=== PATIENT | female | born 1955 | race Hispanic/Latino ===

== ENCOUNTER 2019-09-15 05:54 | Emergency (ER) | payer SELFPAY ==
[2019-09-15] MEDS ORDERED: NA CHLORIDE 0.9% 1,000 ML ONE (06:22)
[2019-09-15 06:46] LABS: Absolute Lymphocytes (CBC) 3.1 K/uL (0.7-4.9); Basophils % 0.6 % (0-1.3); MPV 9.6 fL (7.6-11.3); RBC Red Blood Cell Count 4.17 M/uL (3.86-4.86)
[2019-09-15] MEDS ORDERED: FENTANYL CITR 100 MCG/2 ML ONE (06:47)
[2019-09-15 06:56] LABS: Urine Blood TRACE (NEG); Urine Glucose NEGATIVE (NEG); Urine Protein NEGATIVE (NEG); Urine Specific Gravity 1.025 (1.005-1.030); Urine pH 5.5 (5.0-7.0)
[2019-09-15 07:08] LABS: Urine Bacteria 20-50 /HPF (<20); Urine Culture Reflex Order NOT NEEDED; Urine RBC <5 /HPF (NONE SEEN)
[2019-09-15 07:42] LABS: ALT/SGPT 36 U/L (12-78); AST/SGOT 34 U/L (15-37); Albumin 3.6 g/dL (3.4-5.0); Alkaline Phosphatase 164 U/L (45-117); BUN Blood Urea Nitrogen 13 mg/dL (7-18); Bicarbonate 26 mmol/L (21-32); Bilirubin Direct 0.2 mg/dL (0-0.2); Bilirubin Total 0.8 mg/dL (0.2-1.0); Creatine Phosphokinase 84 U/L (26-192); Glucose Level 157 mg/dL (74-106); Lipase 143 U/L (73-393); Potassium 4.2 mmol/L (3.5-5.1); Protein, Total 7.7 g/dL (6.4-8.2); Sodium Level 139 mmol/L (136-145); Troponin I < 0.02 ng/mL (0.0-0.045)
--- NOTE | 2019-09-15 07:50 | RAD REPORT ---
EXAM DESCRIPTION: CT - Abdomen Pelvis W Contrast - 09/15/2019 7:39 am CLINICAL HISTORY: ABD PAIN COMPARISON: No comparisons TECHNIQUE: Biphasic, helical CT imaging of the abdomen and pelvis was performed following 100 ml non -ionic IV contrast. No oral contrast. All CT scans are performed using dose optimization technique as appropriate and may include automated exposure control or mA/KV adjustment according to patient size. FINDINGS: No suspicious findings in the lung bases. Liver shows a mild diffuse fatty infiltration pattern. No focal liver lesion identified. No splenomeg chuck or focal splenic finding. No pancreatic or peripancreatic abnormality identified. Numerous small layering gallstones are present within a normal-sized gallbladder. No active gallbladder process seen . No biliary tree dilatation. Symmetric renal function is seen with no hydronephrosis or suspicious renal mass. No pyelonephritis o r acute parenchymal process. No bladder abnormalities. No adrenal abnormalities. Uterus and ovaries s how no suspicious findings. Stomach, duodenum and proximal small bowel show no acute findings. Distended but nondilated mid and d istal small bowel loops are present. No obstructive process suspected. Appendix is normal. Colon is m ostly decompressed. No acute colon finding. No free air, free fluid or inflammatory stranding. No hernia, mass or bulky lymphadenopathy. No suspicious bony findings. IMPRESSION: Prominent mid and distal small bowel loops most likely a nonspecific enteritis. No abrup t transition point, mass or other finding to suspect developing small bowel obstruction. No acute colon process seen. Multi stone cholelithiasis believed to be incidental to the current presentation. Mild fatty infiltration of the liver.
--- NOTE | 2019-09-15 07:59 | ER ---
Nurse's Notes [facility] Name: Yumiko Blackmon Age: 64 yrs Sex: Female : 1955 Arrival Date: 09/15/2019 Time: 05:57 Bed 6 Private MD: Diagnosis: Upper abdominal pain, unspecified;Cholelithiasis Presentation: 09/15 06:10 Presenting complaint: Patient states: Reports she started having epigastric pain last ea night and worsened at 2 AM 9// Pt denies it radiating, denies SOB. Reports she took omeprazole at 3 AM. Transition of care: patient was not received from another setting of care. Onset of symptoms was September 15, 2019. Risk Assessment: Do you want to hurt yourself or someone else? Patient reports no desire to harm self or others. Initial Sepsis Screen: Does the patient meet any 2 criteria? No. Patient's initial sepsis screen is negative. Does the patient have a suspected source of infection? No. Patient's initial sepsis screen is negative. Care prior to arrival: Medication(s) given: omeprazole at 3 AM. 06:10 Method Of Arrival: Ambulatory ea 06:10 Acuity: LEE 3 ea Triage Assessment: 06:16 General: Appears uncomfortable, Behavior is appropriate for age. Pain: Complains of ea pain in epigastric area. Neuro: Level of Consciousness is awake, alert, obeys commands, Oriented to person, place, time, situation. Cardiovascular: Patient's skin is warm and dry. Respiratory: Airway is patent Respiratory effort is even, unlabored, Respiratory pattern is regular, symmetrical. GI: Abdomen is non-distended. Derm: Skin is pink, warm \T\ dry. Historical: - Allergies: 06:13 No Known Allergies; ea - Home Meds: 06:13 omeprazole Oral [Active]; ea - PMHx: 06:13 None; ea - PSHx: 06:13 None; ea - Immunization history:: Adult Immunizations up to date. - Social history:: Smoking status: Patient/guardian denies using tobacco. - Ebola Screening: : No symptoms or risks identified at this time. Screenin:12 Abuse screen: Denies threats or abuse. Nutritional screening: No deficits noted. ea Tuberculosis screening: No symptoms or risk factors identified. Fall Risk IV access (20 points). Assessment: 06:16 Reassessment: see triage assessment. ea 07:10 Reassessment: Patient is alert, oriented x 3, equal unlabored respirations, skin aa5 warm/dry/pink. Patient states feeling better. Awaiting CT scan, pt notified of wait time. . Pain: Complains of pain in epigastric area Pain does not radiate. Pain currently is 5 out of 10 on a pain scale. Quality of pain is described as sharp. GI: Abdomen is round Bowel sounds present X 4 quads. Abd is soft X 4 quads Abdomen is tender to palpation in epigastric area Reports nausea, vomiting. 08:39 Reassessment: Patient is alert, oriented x 3, equal unlabored respirations, skin aa5 warm/dry/pink. Vital Signs: 06:14 BP 157 / 76; Pulse 87; Resp 18; Temp 98.2; Pulse Ox 97% ; Weight 108.86 kg; Height 5 ea ft. (152.40 cm); 07:10 BP 150 / 78; Pulse 88; Resp 16 S; Pulse Ox 96% on R/A; Pain 5/10; aa5 08:30 BP 148 / 70; Pulse 78; Resp 16 S; Temp 98.0(TE); Pulse Ox 98% on R/A; Pain 4/10; aa5 06:14 Body Mass Index 46.87 (108.86 kg, 152.40 cm) ea ED Course: 05:57 Patient arrived in ED. cl3 06:05 [facility] snw 06:05 Jeff Horvath MD is Attending Physician. snw 06:12 Triage completed. ea 06:14 Patient has correct armband on for positive identification. Placed in gown. Bed in low ea position. Call light in reach. Side rails up X 1. 06:16 Arm band placed on right wrist. Patient placed in an exam room, on a stretcher, on ea pulse oximetry. 06:35 Missed attempt(s): 20 gauge in right in left antecubital area. Bleeding controlled, ds4 band aid applied, catheter tip intact. 06:38 Radiology exam delayed due to lab results not completed at this time. (BUN/Creatinine). kw1 06:40 Inserted saline lock: 22 gauge in right forearm, using aseptic technique. Blood ea collected. 06:52 Radiology exam delayed due to lab results not completed at this time. (BUN/Creatinine). kw1 07:10 oJstin Marie, RN is Primary Nurse. jl7 07:39 CT Abd/Pelvis - IV Contrast Only In Process Unspecified. EDMS 07:57 Shiraz Chou MD is Referral Physician. snw 08:39 No provider procedures requiring assistance completed. IV discontinued, intact, aa5 bleeding controlled, No redness/swelling at site. Pressure dressing applied. Administered Medications: 06:50 Drug: fentaNYL (PF) 25 mcg Route: IVP; Site: right forearm; ea 07:10 Follow up: Response: No adverse reaction; Pain is decreased aa5 06:51 Drug: NS 0.9% 1000 ml Route: IV; Rate: 125 ml/hr; Site: right forearm; ea 07:10 Follow up: IV Status: Infusion continued aa5 08:13 Drug: UltRAM 50 mg Route: PO; jl7 08:13 Drug: Bentyl 20 mg Route: PO; jl7 Outcome: 07:58 Discharge ordered by MD. snw 08:39 Discharged to home ambulatory, with family. aa5 08:39 Condition: improved 08:39 Discharge instructions given to patient, Instructed on discharge instructions, follow up and referral plans. medication usage, Demonstrated understanding of instructions, follow-up care, medications, Prescriptions given X 2. 08:41 Patient left the ED. iw Signatures: Dispatcher [employer] EDDC Halina Daniels, COMMERCIAL CREDIT LEAD-C COMMERCIAL CREDIT LEAD-Csnw Karishma Quinones RN RN iw Kandice Cosby RN RN aa5 Zoran Scott ds4 Jostin Marie, RN RN jl7 Omaira Alvarado, RN Sera [place] ea kw1 Rafaela Abad cl3
--- NOTE | 2019-09-15 07:59 | EDPHYS ---
Physician Documentation [facility] Name: Yumiko Blackmon Age: 64 yrs Sex: Female : 1955 Arrival Date: 09/15/2019 Time: 05:57 Bed 6 Private MD: ED Physician eJff Horvath HPI: 09/15 06:59 This 64 yrs old Female presents to ER via Ambulatory with complaints of snw Abdominal Pain. 06:59 The patient presents with abdominal pain in the right upper quadrant. Onset: The snw symptoms/episode began/occurred suddenly, yesterday. The symptoms do not radiate. Associated signs and symptoms: Pertinent positives: nausea and vomiting. The symptoms are described as crampy. Severity of pain: At its worst the pain was moderate severe in the emergency department the pain has improved. It is unknown whether or not the patient has had similar symptoms in the past. The patient has not recently seen a physician. Historical: - Allergies: 06:13 No Known Allergies; ea - Home Meds: 06:13 omeprazole Oral [Active]; ea - PMHx: 06:13 None; ea - PSHx: 06:13 None; ea - Immunization history:: Adult Immunizations up to date. - Social history:: Smoking status: Patient/guardian denies using tobacco. - Ebola Screening: : No symptoms or risks identified at this time. ROS: 06:58 Constitutional: Negative for fever, chills, and weight loss, Eyes: Negative for injury, snw pain, redness, and discharge, ENT: Negative for injury, pain, and discharge, Neck: Negative for injury, pain, and swelling, Cardiovascular: Negative for chest pain, palpitations, and edema, Respiratory: Negative for shortness of breath, cough, wheezing, and pleuritic chest pain, Back: Negative for injury and pain, : Negative for injury, bleeding, discharge, and swelling, MS/Extremity: Negative for injury and deformity, Skin: Negative for injury, rash, and discoloration, Neuro: Negative for headache, weakness, numbness, tingling, and seizure. 06:58 Abdomen/GI: Positive for abdominal pain, nausea and vomiting, of the right upper quadrant. Exam: 06:57 Constitutional: This is a well developed, well nourished patient who is awake, alert, snw and in no acute distress. Head/Face: Normocephalic, atraumatic. Eyes: Pupils equal round and reactive to light, extra-ocular motions intact. Lids and lashes normal. Conjunctiva and sclera are non-icteric and not injected. Cornea within normal limits. Periorbital areas with no swelling, redness, or edema. ENT: Nares patent. No nasal discharge, no septal abnormalities noted. Tympanic membranes are normal and external auditory canals are clear. Oropharynx with no redness, swelling, or masses, exudates, or evidence of obstruction, uvula midline. Mucous membranes moist. Neck: Trachea midline, no thyromegaly or masses palpated, and no cervical lymphadenopathy. Supple, full range of motion without nuchal rigidity, or vertebral point tenderness. No Meningismus. Chest/axilla: Normal chest wall appearance and motion. Nontender with no deformity. No lesions are appreciated. Cardiovascular: Regular rate and rhythm with a normal S1 and S2. No gallops, murmurs, or rubs. Normal PMI, no JVD. No pulse deficits. Respiratory: Lungs have equal breath sounds bilaterally, clear to auscultation and percussion. No rales, rhonchi or wheezes noted. No increased work of breathing, no retractions or nasal flaring. Abdomen/GI: Soft, non-tender, with normal bowel sounds. No distension or tympany. No guarding or rebound. No evidence of tenderness throughout. Back: No spinal tenderness. No costovertebral tenderness. Full range of motion. Skin: Warm, dry with normal turgor. Normal color with no rashes, no lesions, and no evidence of cellulitis. MS/ Extremity: Pulses equal, no cyanosis. Neurovascular intact. Full, normal range of motion. Neuro: Awake and alert, GCS 15, oriented to person, place, time, and situation. Cranial nerves II-XII grossly intact. Motor strength 5/5 in all extremities. Sensory grossly intact. Cerebellar exam normal. Normal gait. Psych: Awake, alert, with orientation to person, place and time. Behavior, mood, and affect are within normal limits. 06:57 Abdomen/GI: Inspection: abdomen appears normal, Bowel sounds: normal, Palpation: mild abdominal tenderness, in the right upper quadrant and left upper quadrant. Vital Signs: 06:14 BP 157 / 76; Pulse 87; Resp 18; Temp 98.2; Pulse Ox 97% ; Weight 108.86 kg; Height 5 ea ft. (152.40 cm); 07:10 BP 150 / 78; Pulse 88; Resp 16 S; Pulse Ox 96% on R/A; Pain 5/10; aa5 08:30 BP 148 / 70; Pulse 78; Resp 16 S; Temp 98.0(TE); Pulse Ox 98% on R/A; Pain 4/10; aa5 06:14 Body Mass Index 46.87 (108.86 kg, 152.40 cm) ea MDM: 06:07 Patient medically screened. snw 07:59 Data reviewed: vital signs, nurses notes. Data interpreted: Pulse oximetry: on room air snw is 96 %. Interpretation: acceptable. Counseling: I had a detailed discussion with the patient and/or guardian regarding: the historical points, exam findings, and any diagnostic results supporting the discharge/admit diagnosis, the presence of at least one elevated blood pressure reading (>120/80) during this emergency department visit, lab results, radiology results, the need for outpatient follow up, to return to the emergency department if symptoms worsen or persist or if there are any questions or concerns that arise at home. Response to treatment: the patient's symptoms have markedly improved after treatment. Special discussion: Based on the patient's Hx, exam, and Dx evaluation, there is no indication for emergent surgery or inpatient Tx. It is understood by the patient/guardian that if the Sx's persist or worsen they need to return immediately for re-evaluation. I have referred the patient to see his PCP for further evaluation of high blood pressure. Based on the history and exam findings, there is no indication for further emergent testing or inpatient evaluation. I discussed with the patient/guardian the need to see the general surgeon for further evaluation of the symptoms. I discussed with the patient/guardian the need to see the primary care provider for further evaluation of the symptoms. 09/15 06:06 Order name: Basic Metabolic Panel; Complete Time: 07:48 snw 09/15 06:06 Order name: CBC with Diff; Complete Time: 06:55 snw 09/15 06:06 Order name: Creatinine for Radiology; Complete Time: 07:11 snw 09/15 06:06 Order name: Hepatic Function; Complete Time: 07:48 snw 09/15 06:06 Order name: Lipase; Complete Time: 07:48 snw 09/15 06:06 Order name: Urine Culture 09/15 06:06 Order name: Urine Microscopic Only; Complete Time: 07:11 snw 09/15 06:06 Order name: CT Abd/Pelvis - IV Contrast Only; Complete Time: 07:54 snw 09/15 06:51 Order name: Urine Dipstick--Ancillary (enter results); Complete Time: 06:55 mw2 09/15 07:11 Order name: Add On-Lab 09/15 07:21 Order name: Creatine Phosphokinase; Complete Time: 07:48 EDMS 09/15 07:21 Order name: Troponin I; Complete Time: 07:48 EDMS 09/15 06:06 Order name: IV Saline Lock; Complete Time: 06:17 snw 09/15 06:06 Order name: Labs collected and sent; Complete Time: 06:17 snw 09/15 06:06 Order name: Urine Dipstick-Ancillary (obtain specimen); Complete Time: 06:51 snw 09/15 06:06 Order name: NPO; Complete Time: 06:39 snw 09/15 06:58 Order name: EKG; Complete Time: 06:58 snw 09/15 06:58 Order name: EKG - Nurse/Tech; Complete Time: 07:40 snw Administered Medications: 06:50 Drug: fentaNYL (PF) 25 mcg Route: IVP; Site: right forearm; ea 07:10 Follow up: Response: No adverse reaction; Pain is decreased aa5 06:51 Drug: NS 0.9% 1000 ml Route: IV; Rate: 125 ml/hr; Site: right forearm; ea 07:10 Follow up: IV Status: Infusion continued aa5 08:13 Drug: UltRAM 50 mg Route: PO; jl7 08:13 Drug: Bentyl 20 mg Route: PO; jl7 Disposition: 09/15/19 07:58 Discharged to Home. Impression: Upper abdominal pain, unspecified, Cholelithiasis. - Condition is Stable. - Discharge Instructions: Abdominal Pain, Adult, Biliary Colic, Adult, Fat and Cholesterol Restricted Diet, Hypertension, Cholelithiasis. - Prescriptions for Bentyl 20 mg Oral Tablet - take 1 tablet by ORAL route every 6 hours As needed; 20 tablet. promethazine 25 mg Oral Tablet - take 1 tablet by ORAL route every 6 hours As needed; 20 tablet. - Medication Reconciliation Form, Thank You Letter, Antibiotic Education, Prescription Opioid Use form. - Follow up: Emergency Department; When: As needed; Reason: Worsening of condition. Follow up: Private Physician; When: 1 - 2 days; Reason: Recheck today's complaints, Continuance of care, Re-evaluation by your physician. Follow up: Shiraz Chou MD; When: 1 week; Reason: Recheck today's complaints, Continuance of care. Addendum: 09/19/2019 15:29 Co-signature as Attending Physician, Jeff Horvath MD. m a2 Signatures: Dispatcher [employer] EDHalina Edward, BREN-C SEMICONDUCTOR WAFER INSPECTOR-Csnw Karishma Quinones, RN RN Jostin Hobbs RN RN jl7 Omaira Alvarado RN RN ea Alzahri, Mohammad, MD MD ma2 Kandice Cosby RN aa5 Corrections: (The following items were deleted from the chart) 09/15 08:41 07:58 09/15/2019 07:58 Discharged to Home. Impression: Upper abdominal pain, iw unspecified; Cholelithiasis. Condition is Stable. Forms are Medication Reconciliation Form, Thank You Letter, Antibiotic Education, Prescription Opioid Use. Follow up: Emergency Department; When: As needed; Reason: Worsening of condition. Follow up: Private Physician; When: 1 - 2 days; Reason: Recheck today's complaints, Continuance of care, Re-evaluation by your physician. Follow up: Shiraz Chou; When: 1 week; Reason: Recheck today's complaints, Continuance of care. snw
[2019-09-15] MEDS ORDERED: DICYCLOMINE HCL 10 MG CAP ONE (08:12)
[2019-09-15] MEDS ORDERED: TRAMADOL HCL 50 MG TAB ONE (08:13)
[2019-09-15 08:47] VITALS: TEMP 98.2
[2019-09-15 08:48] VITALS: BP 150/78; O2SAT 96
--- NOTE | 2019-09-15 20:57 | EKG ---
Test Date: 2019-09-15 Test Time: 07:56:06 Crotch Piece Baster: COLLIN MEASUREMENT RESULTS: Intervals: Rate: 76 WI: 142 QRSD: 92 QT: 374 QTc: 420 [place]: P: 49 WI: 142 QRS: 24 T: 8 INTERPRETIVE STATEMENTS: Normal sinus rhythm Normal ECG No previous ECG available for comparison Electronically Signed On 09-15-19 20:55:01 AUTOMOTIVE SALES SPECIALIST by Jordan Jarvis
== END 2019-09-15 08:41 | disposition home or self-care (01) ==
LOC: ER 05:54
DX: K80.20 Calculus of gallbladder without cholecystitis without obstruction (principal)
CPT/HCPCS: 36415; 74177; 80048; 80076; 81003; 81015; 82550; 83690; 84484; 85025; 87086; 87088; 93005; 96374; 99284; J3010; J7030; Q9967